=== PATIENT | female | born 1935 | race Caucasian/White ===

== ENCOUNTER 2017-03-16 22:45 | Emergency (ER) | payer MEDICARE ==
[~2017-03-16 22:45] MED LIST: ADVAIR250 INH; ASA5GR PO; ASAB PO; ATEN25 PO; ATEN50 PO; CHLORTHALID50 MG OR; ESTRADERM0.05 MG TD; FEMARA PO; FISH-EPA1000 MG PO; GLUCCHONDR PO; HYGROTON 25 MG25 MG OR; LEXAPRO10 PO; LIOR10 PO; LIPITOR40 PO; LISINOPRIL40 MG PO; LORT7 PO; MIRALAXPKT PO; MIRAPEX250 PO; MIRAPEX5 PO; MOBIC15 MG PO; MULTIPLE VIT PO; MULTIVIT/MIN PO; NEXIUM40 PO; NORCO1 TAB PO; NORV5 PO; PLAVIX PO; PRIN20 PO; PROVERA 2.5 MG2.5 MG PO; SINGULAIR1 PO; SLO-NIACIN500 MG PO; TRILIPIX135 MG PO; ULTRAM50 PO; VITAMIN D1000 UNI1 PO; VITAMIN D31000 UNIT PO; VITC500 PO; WELLBUTRIN200 MG PO; WELLSR150 PO; WELLXL150 PO; WELLXL300 PO; ZETIA PO
[2017-03-16 23:04] LABS: BASOPHILS 0.6 %; BASOPHILS ABSOLUTE 0.03 10/3/uL (0.0-0.16); EOSINOPHILS 3.8 %; EOSINOPHILS ABSOLUTE 0.19 10/3/uL (0.0-0.53); HEMATOCRIT 40.7 % (36.0-48.0); HEMOGLOBIN 13.4 g/dL (12.0-16.0); IMMATURE GRANULOCYTES 0.4 %; IMMATURE GRANULOCYTES ABSOLUTE 0.02 10/3/uL (0.0-0.11); LYMPHOCYTES 25.8 %; MEAN CORPUS HGB CONC 32.9 g/dL (32.0-36.0); MEAN CORPUSCULAR HEMOGLOB 31.6 pg (26.0-34.0); MEAN PLATELET VOLUME 11.2 fL (9.2-13.0); MONOCYTES 9.1 %; MONOCYTES ABSOLUTE 0.46 10/3/uL (0.21-1.20); NEUTROPHILS 60.3 %; NEUTROPHILS ABSOLUTE 3.04 10/3/uL (2.02-8.40); PLATELET COUNT 201 10/3/uL (150-400); RBC DISTRIBUTION WIDTH 13.8 % (12.0-16.0); RED CELL COUNT 4.24 10/6/uL (4.0-5.6)
[2017-03-16 23:08] LABS: MANUAL DIFF NO %
[2017-03-16 23:18] LABS: BUN (BLOOD UREA NITROGEN) 19 MG/DL (6-23); CALCIUM, SERUM 9.8 MG/DL (8.5-10.4); CHLORIDE, SERUM 106 MMOL/L (96-112); GFR AFRICAN AMERICAN 61 ML/MIN (>=60); GFR NON AFRICAN AMERICAN 53 ML/MIN (>=60); POTASSIUM, SERUM 4.4 MMOL/L (3.5-5.3); SODIUM, SERUM 141 MMOL/L (135-148)
[2017-03-16 23:20] LABS: CO2 (CARBON DIOXIDE) 31 MMOL/L (24-34); GLUCOSE, SERUM 138 MG/DL (60-99)
[2017-03-17 01:46] LABS: ASCORBIC ACID (UR NOT ORDER) NEG (NEG); BILIRUBIN, URINE NEGATIVE (NEG); ER URINALYSIS TAT 0 Hrs 12 Mins; KETONE, URINE NEGATIVE (NEG); LEUKOCYTE ESTERASE(NOT OR NEG (NEG); NITRITE (URINE) NEG (NEG); WBC (NOT ORDERED) (RFLEX) < 1 (0-5)
== END 2017-03-17 03:15 | disposition home or self-care (01) ==
LOC: ER 22:45
PROVIDERS: Hospitalist
DX: R10.9 Unspecified abdominal pain (principal); I10 Essential (primary) hypertension
CPT/HCPCS: 74176; 80048; 81001; 85025; 96374; 96375; 99284; J1170; J1885; J2405

== ENCOUNTER 2017-03-17 19:02 | Emergency (ER) | payer MEDICARE ==
[2017-03-17 19:19] LABS: BASOPHILS 0.3 %; BASOPHILS ABSOLUTE 0.02 10/3/uL (0.0-0.16); EOSINOPHILS 1.5 %; EOSINOPHILS ABSOLUTE 0.11 10/3/uL (0.0-0.53); ER CBC TAT 0 Hrs 07 Mins; HEMATOCRIT 42.5 % (36.0-48.0); HEMOGLOBIN 14.2 g/dL (12.0-16.0); IMMATURE GRANULOCYTES 0.4 %; IMMATURE GRANULOCYTES ABSOLUTE 0.03 10/3/uL (0.0-0.11); LYMPHOCYTES 16.5 %; LYMPHOCYTES ABSOLUTE 1.23 10/3/uL (0.67-4.30); MANUAL DIFF NO %; MEAN CORPUS HGB CONC 33.4 g/dL (32.0-36.0); MEAN CORPUSCULAR HEMOGLOB 31.6 pg (26.0-34.0); MEAN CORPUSCULAR VOLUME 94.4 fL (80-100); MEAN PLATELET VOLUME 11.6 fL (9.2-13.0); MONOCYTES ABSOLUTE 0.52 10/3/uL (0.21-1.20); NEUTROPHILS 74.3 %; NEUTROPHILS ABSOLUTE 5.54 10/3/uL (2.02-8.40); PLATELET COUNT 219 10/3/uL (150-400); RBC DISTRIBUTION WIDTH 13.6 % (12.0-16.0); WHITE BLOOD CELLS 7.5 10/3/uL (4.5-10.5)
[2017-03-17 19:34] LABS: A/G RATIO 1.2 (0.7-1.9); ALBUMIN 4.1 G/DL (3.5-5.0); ALKALINE PHOSPHATASE 81 U/L (45-117); CALCIUM, SERUM 10.1 MG/DL (8.5-10.4); CHLORIDE, SERUM 102 MMOL/L (96-112); CO2 (CARBON DIOXIDE) 33 MMOL/L (24-34); CREATININE 1.01 MG/DL (0.55-1.02); GFR AFRICAN AMERICAN 60 ML/MIN (>=60); GFR NON AFRICAN AMERICAN 52 ML/MIN (>=60); GLOBULIN 3.4 G/DL (2.5-4.1); POTASSIUM, SERUM 4.3 MMOL/L (3.5-5.3); SGOT(AST) 17 U/L (5-40); SGPT(ALT) 33 U/L (5-65); SODIUM, SERUM 141 MMOL/L (135-148); TOTAL BILIRUBIN 0.5 MG/DL (0-1.2); TOTAL PROTEIN 7.5 G/DL (6.0-8.5)
[2017-03-17 19:34] LABS: ASCORBIC ACID (UR NOT ORDER) NEG (NEG); BILIRUBIN, URINE NEGATIVE (NEG); ER URINALYSIS TAT 0 Hrs 18 Mins; KETONE, URINE NEGATIVE (NEG); LEUKOCYTE ESTERASE(NOT OR NEG (NEG); NITRITE (URINE) NEG (NEG); WBC (NOT ORDERED) (RFLEX) 1 (0-5)
[2017-03-17 19:35] LABS: BUN (BLOOD UREA NITROGEN) 14 MG/DL (6-23); GLUCOSE, SERUM 106 MG/DL (60-99)
== END 2017-03-17 20:43 | disposition home or self-care (01) ==
LOC: ER 19:02
PROVIDERS: Hospitalist
DX: M48.06 Spinal stenosis, lumbar region (principal); R74.8 Abnormal levels of other serum enzymes; I10 Essential (primary) hypertension; J45.909 Unspecified asthma, uncomplicated; K21.9 Gastro-esophageal reflux disease without esophagitis; F32.9 Major depressive disorder, single episode, unspecified; Z88.5 Allergy status to narcotic agent; Z88.8 Allergy status to other drugs, medicaments and biological substances; Z79.899 Other long term (current) drug therapy; Z79.82 Long term (current) use of aspirin
CPT/HCPCS: 80053; 81001; 83690; 85025; 96374; 96375; 99283; J2405